=== PATIENT | male | born 1985 | race Two or more races ===

== ENCOUNTER 2016-10-27 13:25 | Emergency (ER) | payer SELFPAY ==
[~2016-10-27] VITALS: Ht 182.9 cm; Wt 79.4 kg
[2016-10-27] MEDS ORDERED: Norco 5mg/325mg tab ORAL ONE (14:00)
--- NOTE | 2016-10-27 15:38 | Emergency Room Report ---
History of Present Illness General Chief Complaint: Upper Extremity Injury Source: Patient Present Illness HPI 31-year-old male presents to emergency Department complaining of pain, tenderness, swelling to the right elbow status post having someone fall onto his arm. Patient denies previous injury to the affected extremity. Patient denies numbness or tingling or open wounds. Patient reports pain is localized in 10 out of 10 in severity exacerbated with movement. he also reports sensation of instability. Denies numbness tingling or loss of sensation or gross motor movements of the extremities, incontinence of bowel or bladder. Denies CP, Palpitations, LOC, AMS, dizziness, Changes in Vision, Sensation, paresthesias, or a sudden severe headache. Allergies: Coded Allergies: No Known Allergies (Unverified , 10/27/16) Patient History Past Medical History: see triage record Past Surgical History: none Pertinent Family History: none Immunizations: UTD Reviewed Nursing Documentation: PMH: Agreed, PSxH: Agreed Nursing Documentation-PMH Past Medical History: No Stated History Review of Systems All Other Systems: negative except mentioned in HPI Physical Exam Vital Signs Date Time Temp Pulse Resp B/P Pulse Ox O2 Delivery O2 Flow Rate FiO2 10/27/16 13:37 97.3 63 16 115/78 100 Sp02 EP Interpretation: reviewed, normal General Appearance: no apparent distress, alert, GCS 15, non-toxic Head: normocephalic, atraumatic Eyes: bilateral eye PERRL, bilateral eye normal inspection ENT: hearing grossly normal, normal pharynx, no angioedema, normal voice Neck: full range of motion, supple/symm/no masses Respiratory: chest non-tender, lungs clear, normal breath sounds, speaking full sentences Cardiovascular #1: regular rate, rhythm, no edema, normal capillary refill Cardiovascular #2: 2+ radial (R), 2+ radial (L) Musculoskeletal: back normal, gait/station normal, normal range of motion - with pain, no calf tenderness, other - TTP, swelling, palpable soft tissue deformity of the medial right elbow suspisious for tendon injury, pt. is NVI to extremity. Neurologic: alert, oriented x3, responsive, motor strength/tone normal, sensory intact, speech normal Psychiatric: judgement/insight normal, memory normal, mood/affect normal, no suicidal/homicidal ideation Skin: normal color, no rash, warm/dry, well hydrated Lymphatic: no adenopathy Procedures Splinting Splinting : Consent: Verbal Location: right arm Splint: posterior long Pre-Proc Neuro Vasc Exam: normal Post-Proc Neuro Vasc Exam: normal Patient Tolerated: Well Complications: None Medical Decision Making PA Attestation Dr. Sandoval is my supervising Physician whom patient management has been discussed with. Diagnostic Impression: Primary Impression: Other specified disorders of tendon, right elbow Additional Impression: Sprain of elbow, right Qualified Codes: S53.401A - Unspecified sprain of right elbow, initial encounter ER Course 31-year-old male presents to emergency Department complaining of pain, tenderness, swelling to the right elbow status post having someone fall onto his arm. Patient denies previous injury to the affected extremity. Patient denies numbness or tingling or open wounds. Patient reports pain is localized in 10 out of 10 in severity exacerbated with movement. he also reports sensation of instability. Ddx considered but are not limited to Fracture, dislocation, contusion, Sprain/ Strain/Spasm . Vital signs: are WNL, pt. is afebrile H&PE are most consistent with musculoskeletal injury of the right elbow ORDERS: - X-ray Right elbow 3 views - Positive for notable medical soft tissue injury , negative for fx, Dislocation, per preliminary read in ED by Dr. Sandoval ED INTERVENTIONS: -5mg [place] PO for pain - Right posterior arm Splint and sling applied by mechanical technical service specialist. Pt. remains neurovascularly intact. DISCHARGE: At this time pt. is stable for d/c to home. Will provide printed patient care instructions, and any necessary prescriptions. Care plan and follow up instructions have been discussed with the patient prior to discharge. Last Vital Signs Date Time Temp Pulse Resp B/P Pulse Ox O2 Delivery O2 Flow Rate FiO2 10/27/16 14:29 97.3 10/27/16 13:37 63 16 115/78 100 Status: improved Disposition: HOME, SELF-CARE Condition: Stable Referrals: NOT CHOSEN IPA/MD,REFERRING (PCP) Departure Forms: Return to Work Return to Work Date: Oct 28, 2016 Work Restrictions: No Heavy Lifting Other Restrictions: limited use of right arm, allow splint and sling. Return to Full Activity: Nov 11, 2016 Patient Instructions: Tendon Injury Additional Instructions: Take medications as directed. Follow up with PCP in 3-5 days Return sooner to ED if new symptoms occur, or current symptoms become worse. Do not drink alcohol, drive, or operate heavy machinery while taking [place] as this may cause drowsiness. - Please note that this Emergency Department Report was dictated using Pruffiprinter operator technology software, occasionally this can lead to erroneous entry secondary to interpretation by the dictation equipment. Alicia Parker Oct 27, 2016 15:38
[2016-10-27] MEDS ORDERED: IBUPROFEN600 MG ORAL (15:40)
[2016-10-27] MEDS ORDERED: NORCO 5-325 TA1 EAC1 ORAL (15:40)
[2016-10-27 15:58] VITALS: BP 106/56
--- NOTE | 2016-10-29 09:34 | Diagnostic Imaging Report ---
Indication: Right elbow pain Technique: XRAY ELBOW MIN 3 VIEWS RIGHT Comparison: None Findings: There is no radiographically evident fracture or dislocation. Soft tissue swelling of the elbow is noted. There is no obvious joint effusion. Impression: No radiographically evident fracture or dislocation. Medial elbow soft tissue swelling. Followup recommended as indicated.
== END 2016-10-27 15:55 | disposition home or self-care (01) ==
LOC: EMR 15:12
DX: S53.401A Unspecified sprain of right elbow, initial encounter (principal); M67.823 Other specified disorders of tendon, right elbow; W50.0XXA Accidental hit or strike by another person, initial encounter; Y92.9 Unspecified place or not applicable; Y99.8 Other external cause status
CPT/HCPCS: 29105; 29240; 99284